=== PATIENT | male | born 1965 | race Caucasian/White ===

== ENCOUNTER 2016-11-06 05:19 | Inpatient (IN) | payer SELFPAY ==
[2016-11-06] MEDS ORDERED: NORMAL SALINE 1000 ML 1,000 ML IV ONE ×3 (05:41→07:04)
[2016-11-06] MEDS ORDERED: ONDANSETRON HCL INJ/PF 4 MG/2 ML SDV IV ONE (05:42)
--- NOTE | 2016-11-06 05:49 | ER Document Report ---
ED Medical Screen (RME) - General Chief Complaint: Nausea/Vomiting/Diarrhea Stated Complaint: VOMITING,DIARRHEA Time Seen by Provider: 11/06/16 05:40 Notes: 50-year-old male, chief complaint of vomiting, states he ate seafood and he thinks he got food poisoning, states he vomited continuously from 8 PM last night. Medical history is hypertension, did not take his medications this morning. He states that he tried to stand up and he passed out, he hit his left elbow with a scrape on the ground, he did not hit his head per friend, his friend was helping him. He denies any chest pain, he reports crampy abdominal pain over the top of his abdomen. TRAVEL OUTSIDE OF THE [place] IN LAST 30 DAYS: No Past Medical History Renal/ Medical History: Denies: Hx Peritoneal Dialysis Physical Exam - Cardiovascular Rhythm: Regular Heart sounds: Normal auscultation, S1 appreciated, S2 appreciated - Abdominal Inspection: Normal Tenderness: Tender - Mild generalized tenderness - Skin Skin Color: Pale Course - Re-evaluation Re-evalutation: 11/06/16 05:48 Patient pale, heart rate in the 90s, found to have a systolic blood pressure in the 60s, immediately placed on monitor the rest of the way, 2 large-bore IVs placed, normal saline boluses begun, workup pending. Patient upgraded to a yellow level [address] Phillips.
[2016-11-06 06:10] LABS: HEMATOCRIT 48.6 % (37.9-51.0); HEMOGLOBIN 15.9 g/dL (13.5-17.0); HGB HCT DIFFERENCE -0.9; MEAN CORPUSCULAR HEMOGLOBIN 32.2 pg (27.0-33.4); MEAN CORPUSCULAR HGB CONC 32.7 g/dL (32.0-36.0); MEAN CORPUSCULAR VOLUME 98 fl (80-97); RED BLOOD COUNT 4.94 10^6/uL (4.35-5.55); RED CELL DISTRIBUTION WIDTH 13.9 % (11.5-14.0); WHITE BLOOD COUNT 13.6 10^3/uL (4.0-10.5)
[2016-11-06 06:12] LABS: VENOUS BLOOD BASE EXCESS -10.7 mmol/L; VENOUS BLOOD HCO3 17.6 mmol/L (20-32); VENOUS BLOOD PCO2 47.5 mmHg (35-63)
[2016-11-06 06:17] LABS: ALANINE AMINOTRANSFERASE 108 U/L (21-72); ALBUMIN 4.6 g/dL (3.5-5.0); ALKALINE PHOSPHATASE 53 U/L (38-126); ASPARTATE AMINO TRANSFERASE 113 U/L (17-59); BILIRUBIN,DIRECT 0.6 mg/dL (0.0-0.4); BILIRUBIN,TOTAL 0.7 mg/dL (0.2-1.3); BLOOD UREA NITROGEN 24 mg/dL (7-20); CALCIUM 9.8 mg/dL (8.4-10.2); CHLORIDE 97 mmol/L (98-107); GLUCOSE 154 mg/dL (75-110); LIPASE 290.1 U/L (23-300); POTASSIUM 3.8 mmol/L (3.6-5.0); TOTAL PROTEIN 7.9 g/dL (6.3-8.2)
[2016-11-06 06:26] LABS: CARBON DIOXIDE 18 mmol/L (22-30); SODIUM 139.3 mmol/L (137-145)
--- NOTE | 2016-11-06 06:28 | ER Document Report ---
ED GI/ - General Chief Complaint: Nausea/Vomiting/Diarrhea Stated Complaint: VOMITING,DIARRHEA Time Seen by Provider: 11/06/16 05:40 Information source: Patient TRAVEL OUTSIDE OF THE [place] IN LAST 30 DAYS: No - HPI Notes: 11/06/16 06:26 50-year-old male with history of hypertension presents with profuse vomiting and diarrhea that began last night. He feels this is related to seafood that he ate. No recent antibiotic use and no other chips otherwise. He has had some cramping in his legs as well as his abdomen but this has been fairly mild. Vomiting seems to have improved and he has been drinking lots of water still having some vomiting and definitely diarrhea. There is no blood or mucus. No fever. Denies chest pain shortness of breath or other symptoms otherwise. 11/06/16 06:29 - Related Data Allergies/Adverse Reactions: No Known Allergies Allergy (Unverified 11/06/16 06:55) Home Medications: Current Home Medications Hydrochlorothiazide [Hydrodiuril 25 mg Tablet] 25 mg PO DAILY 11/06/16 [History] Lisinopril [Zestril] 20 mg PO DAILY 11/06/16 [History] Past Medical History - Social History Smoking Status: Current Every Day Smoker Family History: Reviewed & Not Pertinent Patient has suicidal ideation: No Patient has homicidal ideation: No Renal/ Medical History: Denies: Hx Peritoneal Dialysis Review of Systems - Review of Systems -: Yes All other systems reviewed and negative Physical Exam - Vital signs Vitals: Resp Pulse Ox 29 H 100 11/06/16 05:46 11/06/16 05:46 Notes: As per nurse's notes, hypertension noted - General Notes: GENERAL: VS as per nursing doc. Well-appearing, well-nourished and in no acute distress. HEAD: Atraumatic, normocephalic. EYES: Pupils equal round and reactive to light, extraocular movements intact, sclera anicteric, no conjunctival injection or discharge. ENT: Nares patent, oropharynx clear without exudates, slightly dry mucous membranes. NECK: Normal range of motion, supple without lymphadenopathy. LUNGS: Breath sounds clear to auscultation bilaterally and equal. No wheezes rales or rhonchi. HEART: Regular rate and rhythm without murmurs. ABDOMEN: Soft, non-tender, normoactive bowel sounds. No guarding, no rebound. No masses appreciated. No [place] sign. BACK: No CVA tenderness. EXTREMITIES: Normal range of motion, no calf tenderness, 1+ edema. NEUROLOGICAL: Cranial nerves grossly intact. Normal speech. Normal sensory and motor exams. No gross cerebellar abnormalities. PSYCH: Normal mood, normal affect. SKIN: Warm, dry, normal turgor, no lesions noted. Course - Re-evaluation Re-evalutation: 11/06/16 07:14 No hospitalist available after attempt to make admission. On recheck, patient without complaints. Feeling better overall. - Vital Signs Vital signs: Temp Pulse Resp BP Pulse Ox 98.6 F 87 18 124/71 99 11/07/16 09:09 11/07/16 09:09 11/07/16 09:09 11/07/16 09:09 11/07/16 09:09 - Laboratory Result Diagrams: 11/06/16 05:50 11/07/16 06:55 Laboratory results interpreted by me: 11/06/16 11/06/16 11/06/16 05:50 05:50 05:50 WBC 13.6 H MCV 98 H Band Neutrophils % 21 H Lymphocytes % (Manual) 2 L Metamyelocytes % 2 H Abs Neuts (Manual) 12.5 H Abs Lymphs (Manual) 0.3 L VBG pH VBG HCO3 Chloride 97 L Carbon Dioxide 18 L Anion Gap 24 H BUN 24 H Creatinine 2.40 H Est GFR ( Amer) 35 L Est GFR (Non-Af Amer) 29 L Glucose 154 H Lactic Acid 7.2 H Magnesium 1.2 L* Direct Bilirubin 0.6 H AST 113 H ALT 108 H Urine Protein Urine Blood Ur Leukocyte Esterase 11/06/16 11/06/16 05:50 08:10 WBC MCV Band Neutrophils % Lymphocytes % (Manual) Metamyelocytes % Abs Neuts (Manual) Abs Lymphs (Manual) VBG pH 7.19 L* VBG HCO3 17.6 L Chloride Carbon Dioxide Anion Gap BUN Creatinine Est GFR ( Amer) Est GFR (Non-Af Amer) Glucose Lactic Acid Magnesium Direct Bilirubin AST ALT Urine Protein 30 H Urine Blood MODERATE H Ur Leukocyte Esterase TRACE H - EKG Interpretation by Me EKG shows normal: Sinus rhythm Rate: Normal Rhythm: NSR - Rate 86, no specific injury current noted. - Consults Dr. Ocampo Time consulted: 07:58 - Consulted for admission. Discharge - Discharge Clinical Impression: Vomiting and diarrhea, Lactic acid acidosis, Acute kidney injury Condition: Stable Disposition: ADMITTED INPATIENT Admitting Provider: Hospitalist
[2016-11-06 06:33] LABS: ANION GAP 24 (5-19); MAGNESIUM 1.2 mg/dL (1.6-2.3); VENOUS BLOOD PH 7.19 (7.30-7.42)
[2016-11-06 06:43] LABS: BASOPHILS % (MANUAL) 0 % (0-2); EOSINOPHILS % (MANUAL) 1 % (0-6); LYMPHOCYTES % (MANUAL) 2 % (13-45); TOTAL CELLS COUNTED 100
--- NOTE | 2016-11-06 06:59 | EKG REPORT ---
SEVERITY:- BORDERLINE ECG - SINUS RHYTHM BORDERLINE T ABNORMALITIES, ANT-LAT LEADS : Confirmed by: Vel Salazar 06-Nov-2016 06:59:20
[2016-11-06 07:03] LABS: ANISOCYTOSIS SLIGHT; PLATELET CLUMPS PRESENT; POLYCHROMASIA SLIGHT; TOXIC GRANULATION 1+; TOXIC VACUOLATION PRESENT
--- NOTE | 2016-11-06 07:03 | RADIOLOGY REPORT (SQ) ---
EXAM DESCRIPTION: CTA CHEST COMPLETED DATE/TIME: 11/06/2016 6:23 am REASON FOR STUDY: hypotension, abd/back pain, vomiting COMPARISON: None. TECHNIQUE: CT scan of the chest performed using helical scanning technique with dynamic intravenous contrast injection. Images reviewed with lung, soft tissue and bone windows. Reconstructed coronal and sagittal MPR images reviewed. Additional 3 dimensional post-processing performed to develop Maximal Intensity Projection images (WI P). All images stored on PACS. All CT scanners at this facility use dose modulation, iterative reconstruction, and/or weight based d osing when appropriate to reduce radiation dose to as low as reasonably achievable (ALARA). [facility]: Dose Right [facility]: CareDose [facility]: Dose Right [facility]: Teradose 4D [facility]: [employer] CONTRAST TYPE AND DOSE: Contrast bolus optimized for the pulmonary arteries. Not diagnostic for the aorta. RENAL FUNCTION: Not available at time of dictation. Exam performed at clinicians instruction due to medical condition. RADIATION DOSE: . LIMITATIONS: None. FINDINGS: LUNGS AND PLEURA: No masses, infiltrates, pneumothorax. No pleural effusions, calcificati ons. AORTA AND GREAT VESSELS: No aneurysm. Contrast bolus not optimized for the aorta. HEART: No pericardial effusion. No significant coronary artery calcifications. PULMONARY ARTERIES: No emboli visualized in the main pulmonary arteries or the segmental branches. HILAR AND MEDIASTINAL STRUCTURES: No identified masses or abnormal nodes. HARDWARE: None in the chest. UPPER ABDOMEN: Pole THYROID AND OTHER SOFT TISSUES: No masses. No adenopathy. BONES: No acute or significant finding. 3D MIPS: Confirm above findings. OTHER: No other significant finding. IMPRESSION: NORMAL CTA OF THE CHEST. NO PULMONARY EMBOLI. COMMENT: Quality ID # [id number]: Final reports with documentation of one or more dose reduction techniques (e.g., Automated exposure control, adjustment of the mA and/or kV according to patient size, use of iterative reconstruction technique) TECHNICAL DOCUMENTATION: JOB ID: [id number] [employer]- All Rights Reserved
[2016-11-06 07:05] LABS: BAND NEUTROPHILS % (MANUAL) 21 % (3-5)
--- NOTE | 2016-11-06 07:08 | RADIOLOGY REPORT (SQ) ---
EXAM DESCRIPTION: CTA ABDOMEN/PELVIS W WO COMPLETED DATE/TIME: 11/06/2016 6:23 am REASON FOR STUDY: hypotension, abd/back pain, vomiting COMPARISON: None. TECHNIQUE: CT scan of the abdominal aorta extending to the iliac bifurcation performed with and with out intravenous contrast using helical scanning technique with dynamic intravenous contrast injection . Images reviewed with lung, soft tissue, and bone windows. Reconstructed coronal and sagittal MPR im ages reviewed. All images stored on PACS. Advanced 3D imaging as volume rendering, MIPS, SSD performed? yes All CT scanners at this facility use dose modulation, iterative reconstruction, and/or weight based d osing when appropriate to reduce radiation dose to as low as reasonably achievable (ALARA). [facility]: Dose Right [facility]: CareDose [facility]: Dose Right [facility]: Teradose 4D [facility]: [employer] CONTRAST TYPE AND DOSE: contrast/concentration: Isovue 370.00 mg/ml; Total Contrast Delivered: 100.0 ml; Total Saline Delivered: 90.0 ml RENAL FUNCTION: Not available at time of dictation. Exam performed at clinicians instruction due to patient's medical condition. LIMITATIONS: None. FINDINGS: NON-CONTRASTED IMAGING: No significant renal or bladder calcifications. No other significa nt organ calcifications. POST-CONTRAST IMAGING: AORTA AND VESSELS: No aneurysm. No dissection. Renal arteries, SMA, celiac without stenosis. LUNG BASES: No significant findings. No nodules or infiltrates. LIVER: Normal size. No masses or dilated ducts. SPLEEN: Normal size. No focal lesions. PANCREAS: No masses. No significant calcifications. No adjacent inflammation or peripancreatic fluid collections. Pancreatic duct not dilated. GALLBLADDER: No identified stones by CT criteria. No inflammatory changes to suggest cholecystitis. ADRENAL GLANDS: No significant masses or asymmetry. RIGHT KIDNEY AND URETER: No mass, calculi or urinary tract obstruction. LEFT KIDNEY AND URETER: No mass, calculi or urinary tract obstruction. Subcentimeter likely benign c ysts not definitively characterized. RETROPERITONEUM: No retroperitoneal adenopathy, hemorrhage or masses. BOWEL AND PERITONEAL CAVITY: Moderate fluid reversed tension and small bowel measuring up to 4.0 cm i n diameter in the jejunum, left paracentral abdomen. Moderate colonic fluid retention as well. APPENDIX: No evidence of appendicitis ABDOMINAL WALL: No masses. No hernias. BONY STRUCTURES: Gapg-ir-innjvelu L1 anterior compression deformity and moderate desiccated disc bulg e at the L5-S1 level contributes to mild bilateral foraminal stenoses. 3-D IMAGING: Confirms the above findings. OTHER: No other significant finding. IMPRESSION: NO ABDOMINAL AORTIC ANEURYSM, DISSECTION OR SIGNIFICANT STENOSIS. Moderate intra coloni c fluid retention which may indicate malabsorption and or nonspecific ileus. [id number]-dh-[id number] L1 ant erior compression deformity. TECHNICAL DOCUMENTATION: JOB ID: [id number] Quality ID # [id number]: Final reports with documentation of one or more dose reduction techniques (e.g., Au tomated exposure control, adjustment of the mA and/or kV according to patient size, use of iterative reconstruction technique) 2010 [employer]- All Rights Reserved
[2016-11-06] MEDS ORDERED: ONDANSETRON HCL INJ/PF 4 MG/2 ML SDV IV PRN (09:02)
[2016-11-06] MEDS ORDERED: ACETAMINOPHEN 325 MG TABLET PO PRN (09:02)
[2016-11-06 09:08] LABS: APPEARANCE,URINE SLIGHTLY-CLOUDY; BILIRUBIN,URINE NEGATIVE (NEGATIVE); GLUCOSE, URINE NEGATIVE (NEGATIVE); KETONES,URINE NEGATIVE (NEGATIVE); LEUKOCYTE ESTERASE,URINE TRACE (NEGATIVE); NITRITE,URINE NEGATIVE (NEGATIVE); PROTEIN,URINE 30 mg/dL (NEGATIVE); URINE SPECIFIC GRAVITY 1.045; UROBILINOGEN,URINE NEGATIVE mg/dL (<2.0)
[2016-11-06] MEDS ORDERED: ENOXAPARIN SODIUM INJ 40 MG/0.4 ML DISP.SYRIN SUBCUT SCH (10:00)
[2016-11-06] MEDS ORDERED: LEVOFLOXACIN 750 MG/D5W RTU 750 MG/150 ML RTUPB IV SCH (10:00)
--- NOTE | 2016-11-06 10:44 | PDOC H&P ---
History of Present Illness Admission Date/PCP: 11/06/16 09:03 Patient complains of: Nausea vomiting and abdominal pain History of Present Illness: MAGALYS NASH is a 50 year old male, history of hypertension was doing well until yesterday after eating seafood at the restaurant started to develop intractable nausea and vomiting follow-up followed by multiple bouts of diarrhea. The patient felt lightheaded and dizzy on several occasions and almost pass out. There is chills but no definite fever. There is abdominal pain but no hematochezia nor hematemesis noted. Because of the persistence of symptoms the patient was brought to the emergency room for evaluation. Lactic acid level was elevated. Patient was given intravenous fluids and anti-emetics and was then referred for admission. No dysuria urgency or frequency. Past Medical History Past Medical History: Medication reconciliation pending verification from the patient's pharmacist. Cardiac Medical History: Reports: Hypertension Past Surgical History Past Surgical History: Reports: None Social History Information Source: Patient Smoking Status: Current Every Day Smoker Frequency of Alcohol Use: Social Hx Recreational Drug Use: No Drugs: None Family History Family History: DM Parental Family History Reviewed: Yes Children Family History Reviewed: Yes Sibling(s) Family History Reviewed.: Yes Medication/Allergy Home Medications: Hydrochlorothiazide [Hydrodiuril 25 mg Tablet] 25 mg PO DAILY 11/06/16 Lisinopril [Zestril] 20 mg PO DAILY 11/06/16 Allergies/Adverse Reactions: No Known Allergies Allergy (Unverified 11/06/16 06:55) Review of Systems Constitutional: PRESENT: chills, weakness - Generalized. ABSENT: fever(s), headache(s), night sweats, weight gain, weight loss Eyes: ABSENT: visual disturbances Ears: ABSENT: hearing changes Nose, Mouth, and Throat: ABSENT: mouth pain, sore throat Cardiovascular: ABSENT: chest pain, dyspnea on exertion, edema, orthropnea, palpitations Respiratory: ABSENT: cough, hemoptysis, sputum Gastrointestinal: PRESENT: abdominal pain, bloating, diarrhea, nausea, vomiting. ABSENT: coffee ground emesis, constipation, heartburn, hematemesis, hematochezia, melena Genitourinary: ABSENT: difficulty urinating, dysuria, hematuria Musculoskeletal: ABSENT: joint swelling Integumentary: ABSENT: pruritus, rash, wounds Neurological: PRESENT: dizziness, syncope - Near syncope. ABSENT: abnormal gait , abnormal speech, confusion, focal weakness Psychiatric: ABSENT: anxiety, depression, homidical ideation, suicidal ideation Endocrine: ABSENT: cold intolerance, heat intolerance, polydipsia, polyuria Hematologic/Lymphatic: ABSENT: easy bleeding, easy bruising Physical Exam Vital Signs: Temp Pulse Resp BP Pulse Ox 97.4 F 19 101/53 L 97 11/06/16 05:47 11/06/16 07:31 11/06/16 07:31 11/06/16 07:31 General appearance: PRESENT: no acute distress, cooperative Head exam: PRESENT: atraumatic, normocephalic Eye exam: PRESENT: conjunctiva pink, EOMI, PERRLA. ABSENT: scleral icterus Ear exam: PRESENT: normal external ear exam Mouth exam: PRESENT: moist, neck supple, tongue midline Throat exam: ABSENT: post pharyngeal erythema, tonsillar erythema Neck exam: ABSENT: carotid bruit, JVD, lymphadenopathy, thyromegaly Respiratory exam: PRESENT: clear to auscultation robbie, unlabored. ABSENT: rales , rhonchi, wheezes Cardiovascular exam: PRESENT: RRR. ABSENT: diastolic murmur, rubs, systolic murmur Pulses: PRESENT: normal dorsalis pedis pul Vascular exam: PRESENT: normal capillary refill GI/Abdominal exam: PRESENT: hyperactive bowel sounds, soft. ABSENT: distended, guarding, mass, organolmegaly, rebound, tenderness Rectal exam: PRESENT: deferred Extremities exam: PRESENT: full ROM. ABSENT: calf tenderness, clubbing, pedal edema Neurological exam: PRESENT: alert, awake, oriented to person, oriented to place , oriented to time, oriented to situation Psychiatric exam: PRESENT: appropriate affect, normal mood. ABSENT: homicidal ideation, suicidal ideation Skin exam: PRESENT: dry, intact, warm. ABSENT: cyanosis, rash Results Laboratory Results: 11/06/16 09:55 Lactic Acid 2.2 H Impressions: Abdomen/Pelvis CTA 11/06/16 05:58 IMPRESSION: NO ABDOMINAL AORTIC ANEURYSM, DISSECTION OR SIGNIFICANT STENOSIS. Moderate intra colonic fluid retention which may indicate malabsorption and or nonspecific ileus. [id number]-yt-ctstooan L1 anterior compression deformity. Chest/Abdomen CTA 11/06/16 05:58 IMPRESSION: NORMAL CTA OF THE CHEST. NO PULMONARY EMBOLI. Assessment & Plan - Diagnosis (1) Acute kidney injury Is this a current diagnosis for this admission?: Yes (2) Vomiting and diarrhea Is this a current diagnosis for this admission?: Yes (3) Lactic acid acidosis Is this a current diagnosis for this admission?: Yes (4) Hypomagnesemia Is this a current diagnosis for this admission?: Yes (5) Transaminitis Is this a current diagnosis for this admission?: Yes (6) Essential hypertension Is this a current diagnosis for this admission?: Yes - Time Time Spent: 50 to 70 Minutes - Inpatient Certification Based on my medical assessment, after consideration of the patient's comorbidities, presenting symptoms, or acuity I expect that the services needed warrant INPATIENT care.: Yes I certify that my determination is in accordance with my understanding of Medicare's requirements for reasonable and necessary INPATIENT services [42 CFR 412.3e].: Yes Medical Necessity: Need Close Monitoring Due to Risk of Patient Decompensation, Need For IV Fluids, Need for IV Antibiotics Post Hospital Care: D/C Claims Adjuster Documentation - Plan Summary Plan Summary: The patient will be admitted to telemetry. Lactic acidosis may be related to hypotension. We will recheck level in the morning. In the meantime continue normal saline hydration. Begin intravenous antibiotic to cover for infectious colitis brought about by food. We will obtain a renal ultrasound and monitor creatinine. DVT prophylaxis with Lovenox will be given. We will monitor liver functions. We will also obtain a stool culture. Further testing depends on the initial evaluation as outlined above.
[2016-11-06] MEDS: NORMAL SALINE 1000 ML 1,000 ML IV PRN ×2 (11:30→17:31)
[2016-11-06 14:37] LABS: PATH REVIEW PATHOLOGIST REVIEWED
[2016-11-06] MEDS ORDERED: MAGNESIUM SULFATE/D5W 1 GM/100 ML RTUPB IV ONE (20:00)
[2016-11-07] MEDS ORDERED: LANSOPRAZOLE 30 MG TAB.RAP.DR PO SCH (06:00)
[2016-11-07] MEDS: NORMAL SALINE 1000 ML 1,000 ML IV PRN (06:19)
[2016-11-07 07:31] LABS: ALANINE AMINOTRANSFERASE 85 U/L (21-72); ALBUMIN 2.8 g/dL (3.5-5.0); ALKALINE PHOSPHATASE 32 U/L (38-126); ANION GAP 6 (5-19); ASPARTATE AMINO TRANSFERASE 122 U/L (17-59); BILIRUBIN,DIRECT 0.6 mg/dL (0.0-0.4); BILIRUBIN,TOTAL 0.7 mg/dL (0.2-1.3); BLOOD UREA NITROGEN 20 mg/dL (7-20); CALCIUM 7.8 mg/dL (8.4-10.2); CARBON DIOXIDE 22 mmol/L (22-30); CHLORIDE 107 mmol/L (98-107); CREATININE RESULT 1.02 mg/dL (0.52-1.25); GLUCOSE 95 mg/dL (75-110); MAGNESIUM 1.7 mg/dL (1.6-2.3); SODIUM 134.5 mmol/L (137-145); TOTAL PROTEIN 5.4 g/dL (6.3-8.2)
[2016-11-07 09:11] VITALS: BP 124/71
--- NOTE | 2016-11-07 09:53 | RADIOLOGY REPORT (SQ) ---
EXAM DESCRIPTION: U/S RETROPERITON (RENAL/AORTA) COMPLETED DATE/TIME: 11/07/2016 7:10 am REASON FOR STUDY: acute renal failure COMPARISON: CT angio abdomen and pelvis 11/06/2016 TECHNIQUE: Dynamic and static grayscale images acquired of the kidneys and bladder and recorded on P ACS. Additional selected color Doppler and spectral images recorded. LIMITATIONS: None. FINDINGS: RIGHT KIDNEY: Normal size, 10.2 cm in size. Normal echogenicity. No solid or suspicious ma sses. No hydronephrosis. No calcifications. LEFT KIDNEY: Normal size, 10.7 cm in size. Normal echogenicity. No solid or suspicious masses. No hy dronephrosis. No calcifications. BLADDER: No masses. Bilateral ureteral jets are identified OTHER FINDINGS: No other significant finding. IMPRESSION: NORMAL RENAL AND BLADDER ULTRASOUND. TECHNICAL DOCUMENTATION: JOB ID: [id number] [employer]- All Rights Reserved
--- NOTE | 2016-11-07 16:21 | PDOC DISCHARGE SUMMARY ---
General - Admit/Disc Date/PCP Admission Date/Primary Care Provider: 11/06/16 09:03 Discharge Date: 11/07/16 - Discharge Diagnosis (1) Acute kidney injury Is this a current diagnosis for this admission?: Yes (2) Essential hypertension Is this a current diagnosis for this admission?: Yes (3) Vomiting and diarrhea Is this a current diagnosis for this admission?: Yes - Additional Information Resuscitation Status: Full Code Discharge Diet: Regular Discharge Activity: Activity As Tolerated Home Medications: Hydrochlorothiazide [Hydrodiuril 25 mg Tablet] 25 mg PO DAILY 11/06/16 Lisinopril [Zestril] 20 mg PO DAILY 11/06/16 Levofloxacin [Levaquin 750 mg Tablet] 750 mg PO DAILY #5 tablet 11/07/16 History of Present Illness History of Present Illness: MAGALYS NASH is a 50 year old male with a history of hypertension who the day prior to admission had been eating a seafood restaurant and several hours after that developed nausea vomiting with multiple bouts of diarrhea. He felt dizzy and lightheaded and almost passed out. Patient had abdominal pain but no hematochezia. Patient was brought to the emergency room was found to have acute renal failure secondary to dehydration. Hospital Course Hospital Course: 50-year-old male who presented with nausea vomiting and abdominal pain after eating a seafood restaurant. The patient when he presented to the emergency room was found to have some relative hypotension. He was dehydrated with acute renal failure. The patient was given IV fluids and has had resolution of the acute renal failure. The patient was started on Levaquin empirically for the possibility of infectious colitis. Patient has had complete resolution of the symptoms and request to go home. He is tolerating diet without difficulty and his creatinine has returned to normal so we can treat as an outpatient with p.o. Levaquin. All of his cultures have been negative so far up-to-date. Patient's other medical problems were stable during this hospitalization. Physical Exam Vital Signs: Temp Pulse Resp BP Pulse Ox 98.6 F 87 18 124/71 99 11/07/16 09:09 11/07/16 09:09 11/07/16 09:09 11/07/16 09:09 11/07/16 09:09 Intake & Output 11/06/16 11/07/16 11/08/16 06:59 06:59 06:59 Intake Total 3150 Output Total 1200 Balance 1950 Weight 73.4 kg General appearance: PRESENT: no acute distress Eye exam: PRESENT: conjunctiva pink. ABSENT: scleral icterus Mouth exam: PRESENT: moist, tongue midline Neck exam: ABSENT: JVD Respiratory exam: PRESENT: clear to auscultation robbie. ABSENT: rales, rhonchi, wheezes Cardiovascular exam: PRESENT: RRR. ABSENT: diastolic murmur, rubs, systolic murmur GI/Abdominal exam: PRESENT: normal bowel sounds, soft. ABSENT: distended, guarding, mass, organolmegaly, rebound, tenderness Rectal exam: PRESENT: deferred Extremities exam: ABSENT: calf tenderness, clubbing, pedal edema Neurological exam: PRESENT: alert, awake, oriented to person, oriented to place , oriented to time, oriented to situation, CN II-XII grossly intact. ABSENT: motor sensory deficit Psychiatric exam: PRESENT: appropriate affect Skin exam: PRESENT: dry, intact, warm. ABSENT: cyanosis, rash Results Laboratory Results: 11/07/16 06:55 11/07/16 11/07/16 06:55 06:55 Sodium 134.5 L Potassium 4.0 Chloride 107 Carbon Dioxide 22 Anion Gap 6 BUN 20 Creatinine 1.02 Est GFR ( Amer) > 60 Est GFR (Non-Af Amer) > 60 Glucose 95 Lactic Acid 0.7 Calcium 7.8 L Magnesium 1.7 Total Bilirubin 0.7 AST 122 H ALT 85 H Alkaline Phosphatase 32 L Total Protein 5.4 L Albumin 2.8 L Impressions: Abdomen/Pelvis CTA 11/06/16 05:58 IMPRESSION: NO ABDOMINAL AORTIC ANEURYSM, DISSECTION OR SIGNIFICANT STENOSIS. Moderate intra colonic fluid retention which may indicate malabsorption and or nonspecific ileus. Kwoa-yl-xwmotkji L1 anterior compression deformity. Chest/Abdomen CTA 11/06/16 05:58 IMPRESSION: NORMAL CTA OF THE CHEST. NO PULMONARY EMBOLI. Renal Ultrasound 11/07/16 00:00 IMPRESSION: NORMAL RENAL AND BLADDER ULTRASOUND. Qualifiers PATEINT BEING DISCHARGED WITH ANY OF THE FOLLOWING DIAGNOSIS?: No Plan Discharge Plan: Patient is discharged home in stable condition. Follow-up with primary care in 1-2 weeks. Time Spent: Less than 30 Minutes
== END 2016-11-07 09:30 | disposition home or self-care (01) | DRG 683 ==
LOC: ER 05:19 → UNDOADMIN 08:17 → EH 08:17 → 5 16:52
DX: N17.9 Acute kidney failure, unspecified (principal); E87.2 Acidosis; A09 Infectious gastroenteritis and colitis, unspecified; I10 Essential (primary) hypertension; E83.42 Hypomagnesemia; E86.0 Dehydration; R74.0 Nonspecific elevation of levels of transaminase and lactic acid dehydrogenase [LDH]; R11.2 Nausea with vomiting, unspecified; F17.210 Nicotine dependence, cigarettes, uncomplicated
CPT/HCPCS: 36415; 71275; 74174; 76770; 80048; 80053; 80076; 81001; 82803; 83605; 83690; 83735; 84484; 85025; 87040; 93005; 93010; 96361; 96374; 99285; J1650; J1956; J2405; J3475; J7030